=== PATIENT | male | born 1990 | race Caucasian/White ===

== ENCOUNTER 2017-04-21 10:04 | Emergency (ER) | payer MEDICAID, OTHER ==
[~2017-04-21] VITALS: Ht 160 cm; Wt 89.0 kg
[2017-04-21 10:05] VITALS: Ht 160 cm; Wt 89.0 kg
[2017-04-21] MEDS ORDERED: DIAZEPAM 5 MG TAB PO STA (10:36)
[2017-04-21] MEDS ORDERED: KETOROLAC 30 MG INJ IM STA (10:36)
--- NOTE | 2017-04-21 11:17 | RADRPT ---
PROCEDURE: Lumbar spine radiographs CLINICAL INDICATION: Low back pain. COMPARISON: None relevant listed. TECHNIQUE: AP, lateral, and coned-down L5-S1 views. FINDINGS: Alignment is anatomic. The usual lumbar lordosis is preserved. There are 5 non-rib bearing lumbar vertebral bodies. No acute fracture or vertebral height loss. No suspicious bony lesion. Disc space height is preserved. Mild endplate spurring at L3. IMPRESSION: No acute fracture or subluxation. RPTAT: PP Physician Carlene Date Time Electronically viewed and signed by Physician Carlene on 04/21/2017 11:17 LG/
--- NOTE | 2017-04-21 11:19 | ERD ---
ER Documentation Chief Complaint Date/Time DATE: 04/21/17 TIME: 11:14 Chief Complaint back pain x 3 days HPI 26-year-old male presents to the emergency department complaining of constant, moderate to severe achy bilateral lumbar back pain that worsens with movement for the past 3 days. Patient denies any fever, trauma, dysuria. He has not taken any medication ROS All systems reviewed and are negative except as per history of present illness. Medications Home Meds Active Scripts Cyclobenzaprine Hcl* (Cyclobenzaprine Hcl*) 10 Mg Tablet, 10 MG PO TID, #30 TAB Prov:ANGELICA COLLAZO PA-C 04/21/17 Naproxen* (Naproxen*) 500 Mg Tablet, 500 MG PO BID, #30 TAB Prov:ANGELICA COLLAZO PA-C 04/21/17 Allergies Allergies: Coded Allergies: No Known Allergy (Unverified , 12/04/15) PMhx/Soc Medical and Surgical Hx: pt denies Medical Hx, pt denies Surgical Hx History of Surgery: No Anesthesia Reaction: No Hx Neurological Disorder: No Hx Respiratory Disorders: No Hx Cardiac Disorders: No Hx Psychiatric Problems: No Hx Miscellaneous Medical Probl: No Hx Alcohol Use: Yes (daily) Hx Substance Use: No Hx Tobacco Use: Yes Smoking Status: Current every day smoker Physical Exam Vitals Vital Signs Date Time Temp Pulse Resp B/P Pulse Ox O2 Delivery O2 Flow Rate FiO2 04/21/17 10:05 98.1 81 18 150/78 99 Physical Exam Const: Well-developed well-nourished no acute distress Head: Atraumatic Eyes: Normal Conjunctiva ENT: Normal External Ears, Nose and Mouth. Neck: Full range of motion..~ No meningismus. Resp: Clear to auscultation bilaterally Cardio: Regular rate and rhythm, no murmurs Abd: Soft, non tender, non distended. Normal bowel sounds Skin: No petechiae or rashes Back: Tender palpation in the paraspinal muscles bilaterally in the lumbar region, Ext: No cyanosis, or edema Neur: Awake and alert Psych: Normal Mood and Affect Results 24 hrs Current Medications Medications (Trade) Dose Ordered Sig/Radha Route PRN Reason Start Time Stop Time Status Last Admin Dose Admin Ketorolac Tromethamine (Toradol) 30 mg ONCE STAT IM 04/21/17 10:36 04/21/17 10:39 DC 04/21/17 10:49 Diazepam (Valium) 10 mg ONCE STAT PO 04/21/17 10:36 04/21/17 10:39 DC 04/21/17 10:48 Procedures/MDM 26-year-old male presents to the emergency department complaining of bilateral lumbar back pain for 3 days likely due to strain. I have low suspicion for fracture, cauda equina syndrome, nephrolithiasis or pyelonephritis. Lumbar x- ray was done in the ED and did not show any evidence of fracture or subluxation. In the ED patient was given Toradol and Valium. He will be sent home with a prescription for naproxen and Flexeril, I have discussed with him to follow-up with his primary care physician patient is neurovascular intact to be discharged home. He understands and agrees to this plan Departure Diagnosis: Primary Impression: Back pain Condition: Stable ANGELICA COLLAZO PA-C Apr 21, 2017 11:19
[2017-04-21] MEDS ORDERED: CYCL-319 PO (11:21)
[2017-04-21] MEDS ORDERED: NAPR-688 PO (11:21)
== END 2017-04-21 11:38 | disposition home or self-care (01) ==
LOC: FTE 10:04
DX: M54.5 Low back pain (principal); F17.210 Nicotine dependence, cigarettes, uncomplicated
CPT/HCPCS: 72100; 96372; J1885; Z7502; Z7610

== ENCOUNTER 2018-08-02 21:41 | Emergency (ER) | END 2018-08-03 00:56 | disposition home or self-care (01) ==

== ENCOUNTER 2018-08-11 08:02 | Emergency (ER) | END 2018-08-11 09:00 | disposition home or self-care (01) ==